=== PATIENT | female | born 1980 | race Caucasian/White ===

== ENCOUNTER 2019-08-19 12:00 | Inpatient (IN) | payer BC ==
[2019-08-13 09:58] LABS: Basophils # (auto) 0 10 ^3/uL (0-0.2); Basophils % (auto) 0.8 % (0.0-2.0); Eosinophils # (auto) 0.1 10 ^3/uL (0-0.8); Eosinophils % (auto) 4.2 % (0.0-7.0); Hemoglobin 11.7 g/dL (12.2-16.2); Mean Corpuscular Hemoglobin 29.8 pg (28.0-32.0); Mean Corpuscular Hgb Conc. 32.5 g/dL (32.0-36.0); Mean Corpuscular Volume 91.6 fL (80.0-100.0); Monocytes # (auto) 0.3 10 ^3/uL (0-1.3); Neutrophils # (auto) 1.8 10 ^3/uL (1.6-8.6); Platelet Count (auto) 255 10^3/uL (140-450); Red Blood Cells 3.93 10^6/uL (4.0-5.20); Red Cell Distribution Width 14.4 % (11.8-14.3); White Blood Cell 3.2 10^3/uL (4.4-10.8)
[2019-08-13 10:10] LABS: Urine Bacteria NONE SEEN /hpf (None Seen); Urine Blood Negative /uL (Negative); Urine Specific Gravity 1.017 (1.001-1.035); Urine WBC 1 /hpf (0 - 5)
[2019-08-13 10:22] LABS: Albumin 3.9 g/dL (3.4-5.0); Calcium 8.6 mg/dL (8.5-10.1); Potassium 4.3 mmol/L (3.5-5.1)
[2019-08-13 10:26] LABS: BUN/Creatinine Ratio 21.8; Bilirubin, Total 0.6 mg/dL (0.2-1.0); Total Protein 7.6 g/dL (6.4-8.2)
[2019-08-13 10:35] LABS: INR 1.07 (0.9-1.15); Partial Thromboplastin Time 29.5 sec (23.64-32.05)
[~2019-08-19] VITALS: Ht 170.2 cm; Wt 77.3 kg
[2019-08-19] MEDS ORDERED: LIDOCAINE W/ EPINEPHRINE 1% 20ML VIAL ONE (14:09)
[2019-08-19] MEDS ORDERED: BUPIVACAINE 0.25% INJ 50ML VIAL ONE (14:10)
[2019-08-19] MEDS ORDERED: METHYLENE BLUE 0.5% 5MG/ML 10ml AMP IV ONE ×2 (14:10→16:11)
[2019-08-19] MEDS ORDERED: ceFAZolin 1GM/50ML 100 ML IV ONE (14:19)
[2019-08-19] MEDS ORDERED: fentaNYL CITRATE 100 MCG/2 ML VL ONE (14:19)
[2019-08-19] MEDS ORDERED: HYDROmorphone HCL 2 MG/ML VL ONE (14:19)
[2019-08-19] MEDS ORDERED: DexAMETHasone SOD PHOS 10MG/1ML VIAL INJ ONE (14:20)
[2019-08-19] MEDS ORDERED: ONDANSETRON HCL 4 MG/2 ML VIAL ONE (14:20)
[2019-08-19] MEDS ORDERED: PROPOFOL 10 MG/ML 20 ML IV ONE (14:20)
[2019-08-19] MEDS ORDERED: MIDAZOLAM HCL 1MG/1ML-2 ML VIAL ONE (14:20)
[2019-08-19] MEDS ORDERED: ROCURONIUM 10MG/ML 10ML VIAL IV ONE ×2 (14:20→16:07)
[2019-08-19] MEDS ORDERED: GLYCOPYRROLATE 0.2 MG/ML 1ML VIAL ONE ×2 (14:20→16:52)
[2019-08-19] MEDS ORDERED: NEOSTIGMINE 1 MG/ML INJ (10mg/10ML VIAL) ONE (16:52)
[2019-08-19] MEDS ORDERED: MORPHINE SULFATE 4 MG/ML SYR/VIAL IV PRN (17:15)
[2019-08-19] MEDS ORDERED: fentaNYL CITRATE 100 MCG/2 ML VL IV PRN (17:15)
[2019-08-19] MEDS ORDERED: HYDROmorphone HCL 2 MG/ML VL IV PRN (17:15)
[2019-08-19] MEDS ORDERED: ONDANSETRON HCL 4 MG/2 ML VIAL IV PRN ×2 (17:15→17:30)
[2019-08-19] MEDS ORDERED: ACETAMINOPHEN 500 MG TAB PO PRN (17:30)
[2019-08-19] MEDS ORDERED: MORPHINE SULF INJ 2 MG/ML SYRINGE 1ML IV PRN (17:30)
[2019-08-19] MEDS ORDERED: ceFAZolin 1GM/50ML 50 ML IV ONE (17:30)
[2019-08-19] MEDS ORDERED: HYDROcodone-ACET 5/325MG TAB PO PRN (17:30)
[2019-08-19] MEDS ORDERED: NITROGLYCERIN 0.4 MG SL TAB SL PRN (17:30)
[2019-08-19 22:00] VITALS: BP 100/63
[2019-08-20] MEDS: MORPHINE SULFATE 4 MG/ML SYR/VIAL IV PRN ×2 (00:11→08:56)
[2019-08-20] MEDS: SODIUM CHLORIDE 0.9% 1,000 ML IV SCH ×2 (02:50→09:45)
[2019-08-20 05:00] VITALS: BP 106/67
[2019-08-20 07:09] LABS: Basophils # (auto) 0 10 ^3/uL (0-0.2); Basophils % (auto) 0.1 % (0.0-2.0); Eosinophils # (auto) 0 10 ^3/uL (0-0.8); Hematocrit 27.8 % (36.0-46.0); Hemoglobin 9.3 g/dL (12.2-16.2); Lymphocytes # (auto) 0.7 10 ^3/uL (0.4-5.4); Lymphocytes % (auto) 8.6 % (10.0-50.0); Mean Corpuscular Hemoglobin 30.7 pg (28.0-32.0); Mean Corpuscular Hgb Conc. 33.6 g/dL (32.0-36.0); Mean Corpuscular Volume 91.4 fL (80.0-100.0); Monocytes # (auto) 0.8 10 ^3/uL (0-1.3); Monocytes % (auto) 9.7 % (0.0-12.0); Neutrophils # (auto) 6.4 10 ^3/uL (1.6-8.6); Neutrophils % (auto) 81.6 % (37.0-80.0); Platelet Count (auto) 216 10^3/uL (140-450); Red Blood Cells 3.05 10^6/uL (4.0-5.20); Red Cell Distribution Width 13.7 % (11.8-14.3); White Blood Cell 7.9 10^3/uL (4.4-10.8)
[2019-08-20 08:00] VITALS: BP 104/67
[2019-08-20 09:00] VITALS: BP 104/72
[2019-08-20 13:00] VITALS: BP 102/58
== END 2019-08-20 16:50 | disposition home or self-care (01) | DRG 743 ==
LOC: SUR 12:00 → WEST WING 12:01 → EDSTATUS 12:45
PROVIDERS: ADMIT Obstetrics & Gynecology; ATTEND Obstetrics & Gynecology
PROC: 0UT7FZZ Resection of Bilateral Fallopian Tubes, Via Natural or Artificial Opening With Percutaneous Endoscopic Assistance (ICD-10-PCS; 2019-08-19)
PROC: 0UJH8ZZ Inspection of Vagina and Cul-de-sac, Via Natural or Artificial Opening Endoscopic (ICD-10-PCS; 2019-08-19)
PROC: 8E0W0CZ Robotic Assisted Procedure of Trunk Region, Open Approach (ICD-10-PCS; 2019-08-19)
PROC: 0UT9FZZ Resection of Uterus, Via Natural or Artificial Opening With Percutaneous Endoscopic Assistance (ICD-10-PCS; principal; 2019-08-19 14:28)
DX: N81.89 Other female genital prolapse (principal); N73.6 Female pelvic peritoneal adhesions (postinfective); Z20.828 Contact with and (suspected) exposure to other viral communicable diseases
CPT/HCPCS: 36415; 80053; 81001; 84702; 85025; 85610; 85730; 86850; 86900; 86901; 87086; 87635; G0378; J0690; J1100; J2250; J2405; J2704; J3490